=== PATIENT | female | born 1975 | race Caucasian/White ===

== ENCOUNTER 2018-08-19 06:23 | Day surgery (SDC) | payer SELFPAY ==
[2018-08-19] MEDS ORDERED: LIDOCAINE HCL 1%, 10 MG/ML (20ML VIAL) ONE ×4 (07:24→09:54)
[2018-08-19] MEDS ORDERED: EPINEPHrine/PF 1 MG/1 ML (1:1,000) AMPULE ONE (07:24)
[2018-08-19] MEDS ORDERED: SUCCINYLCHOLINE CHLORIDE 200 MG/10 ML VIAL ONE (07:30)
[2018-08-19] MEDS ORDERED: PROPOFOL 20 ML ONE ×2 (07:30→10:52)
[2018-08-19] MEDS ORDERED: KETAMINE HCL 200 MG/20 ML VIAL ONE (07:30)
[2018-08-19] MEDS ORDERED: MIDAZOLAM HCL 2 MG/2 ML SINGLE DOSE VIAL ONE (07:30)
[2018-08-19] MEDS ORDERED: ROCURONIUM BROMIDE 50 MG/5 ML VIAL ONE ×2 (07:30→10:52)
[2018-08-19] MEDS ORDERED: ceFAZolin SODIUM 1 GM VIAL ONE (07:31)
[2018-08-19] MEDS ORDERED: KETOROLAC TROMETHAMINE 30 MG/1 ML VIAL ONE (07:31)
[2018-08-19] MEDS ORDERED: DEXAMETHASONE SOD PHOSPHATE 4 MG/1 ML VIAL ONE (07:31)
[2018-08-19] MEDS ORDERED: LIDOCAINE HCL/PF 2% SDV 5ML VIAL ONE (07:31)
[2018-08-19] MEDS ORDERED: SODIUM CHLORIDE 0.9% P/F 10 ML VIAL IJ ONE (07:31)
[2018-08-19] MEDS ORDERED: MAGNESIUM SULF 50% (8.12 MEQ/2 ML-1 GM VIAL) ONE (07:36)
[2018-08-19] MEDS ORDERED: ceFAZolin SODIUM 1 GM VIAL IVPB ONE ×2 (09:46→10:49)
[2018-08-19] MEDS ORDERED: BUPIVACAINE LIPOSOME/PF (EXPAREL) 266 MG/20 ML VIAL ONE (09:54)
[2018-08-19] MEDS ORDERED: NEOSTIGMINE METHYLSULFATE 0.5 MG/ML - 10 ML MDV ONE (10:03)
[2018-08-19] MEDS ORDERED: GLYCOPYRROLATE 0.2 MG/1 ML VIAL ONE (10:04)
[2018-08-19] MEDS ORDERED: BUPIVACAINE HCL/PF 0.25% (2.5MG/ML) 10 ML VIAL ONE ×2 (10:38→10:42)
[2018-08-19] MEDS ORDERED: BUPIVACAINE LIPOSOME/PF (EXPAREL) 266 MG/20 ML VIAL NR ONE (10:40)
[2018-08-19] MEDS ORDERED: BUPIVACAINE HCL/PF 0.25% (2.5MG/ML) 10 ML VIAL STI ONE (10:40)
[2018-08-19] MEDS ORDERED: ePHEDrine SULFATE 50 MG/1 ML AMPULE ONE (11:00)
[2018-08-19] MEDS ORDERED: ONDANSETRON 4 MG/2 ML VIAL ONE ×2 (12:49→16:11)
--- NOTE | 2018-08-19 12:55 | OP ---
Operative Note - Note: Operative Date: 08/19/18 Pre-Operative Diagnosis: cosmetic deformity of abdomen Operation: Abdominoplasty and liposuction of hips and thighs Post-Operative Diagnosis: Same as Pre-op Surgeon: Carlos Pathak [employer] Cutter: Reji Tiwari Anesthesia: General Estimated Blood Loss (mls): 50 Drains & Tubes with Location: carlos 19 left Operative Report Dictated: Yes
[2018-08-19] MEDS ORDERED: ONDANSETRON 4 MG/2 ML VIAL IVPUSH PRN (13:02)
[2018-08-19] MEDS ORDERED: LACTATED RINGERS SOLUTION 1,000 ML IV SCH (13:15)
[2018-08-19] MEDS ORDERED: HYDROmorphone HCL 2 MG TABLET PO PRN (14:11)
[2018-08-19 15:33] VITALS: TEMP 98.2
[2018-08-19 15:59] VITALS: BP 132/54; PULSE 84
[2018-08-19] MEDS ORDERED: ONDANSETRON 4 MG/2 ML VIAL IVPUSH ONE (16:09)
== END 2018-08-19 18:25 | disposition home or self-care (01) ==
LOC: JASU-SURG 06:23
PROVIDERS: ATTEND Plastic Surgery
CPT/HCPCS: 84703